=== PATIENT | male | born 1965 | race African-American/Black ===

== ENCOUNTER 2016-09-04 11:04 | Emergency (ER) | payer MEDICARE, OTHER ==
[~2016-09-04] VITALS: Ht 182.9 cm; Wt 78.0 kg
[2016-09-04 11:08] VITALS: Ht 182.9 cm; Wt 78.0 kg
--- NOTE | 2016-09-04 12:22 | ERD ---
ER Documentation Chief Complaint Date/Time DATE: 09/04/16 TIME: 12:14 Chief Complaint left eye redness HPI 51-year-old male presented emergency department for left eye redness for 2 days. Denies headache, loss of consciousness, eye trauma, head trauma, dizziness, blurry vision, changes in vision, photophobia, facial pain, ear pain, throat pain, difficulty swallowing, neck pain, shoulder pain, chest pain, cough, hemoptysis, abdominal pain, back pain, loss of appetite, nausea, vomiting, hematochezia, diarrhea, constipation, urinary symptoms, bladder and bowel incontinences, extremity weakness, extremity tenderness, numbness or tingling sensation, difficulty walking, recent travel, recent exposure to illness, recent antibiotic use in the last 3 months, fever, chills. No known drug allergies. Past medical history of diabetes. Surgical history of right Achilles tendon repair. Medication: Stated that he uses insulin for his diabetes. Social history: Not working at this time. Smokes 1 pack of cigarettes a day. Denies use of alcoholic beverages, use of illegal drugs. ROS All systems reviewed and are negative except as per history of present illness. Medications Home Meds Active Scripts Erythromycin* (Erythromycin* Ophthalmic) 1 Applic Oint, 1 APPLIC BOTH EYES QID for 7 Days, EA Prov:ANTONIO SILVERMAN 09/04/16 PMhx/Soc Medical and Surgical Hx: pt denies Medical Hx, pt denies Surgical Hx Hx Alcohol Use: Yes Hx Substance Use: Yes Hx Tobacco Use: Yes Smoking Status: Current every day smoker Physical Exam Vitals Physical Exam CONSTITUTIONAL: Well-appearing; well-nourished; in no apparent distress. HEAD: Normocephalic; atraumatic. EYES: Left eye: Conjunctival redness. Clear, sclera non-icteric, EOM intact. PERRLA. Right eye: Conjunctiva redness. Clear, sclera non-icteric, EOM intact. PERRLA. Ears: Hearing intact. EACs clear, TMs non-bulging, non-inflamed, translucent & mobile, ossicles normal appearance, No obstructions, no erythema, no discharges Nose: No obstructions. No polyps. No external lesions. Mucosa non-inflamed. No external lesions, septum and turbinates normal. No rhinorrhea. No discharges. Frontal sinus is non-tender to palpation. Maxillary sinus is non-tender to palpation. MOUTH: Moist mucous membranes, no lesion, no obstructions, no vesicles, no thrush, patent airway Throat: Uvula in midline. Right tonsil is +1 with no erythema, no exudate. Left tonsil is +1 with no erythema, no exudate. Tolerating secretions well. Good gag reflex. Patent airway. Neck: Supple, without lesions, bruits, or adenopathy. No mass. Thyroid non- enlarged and non-tender to palpation. CHEST: Symmetrical chest. Respirations even and not labored. No retractions noted. CARDIOVASCULAR: Normal S1, S2. RRR. No murmurs, gallops. RESPIRATORY: Normal chest excursion with respiration; breath sounds clear and equal bilaterally; no wheezes, rhonchi, or rales. Breathing even and unlabored. Speaking in clear, full, and complete sentences w/ ease. ABDOMEN: Normal bowel sounds normal. Soft, round, non-distended, non-guarding, no tenderness, no rebound, no organomegaly, no masses, no pulsating abdominal mass. No hernia. No peritoneal signs. : No CVA tenderness. BACK: Symmetrical shoulder. Spine is midline without deformity, tenderness. No evidence of trauma or deformity. PELVIS: Stable pelvis. No evidence of trauma or deformity. MUSCULOSKELETAL: Normal gait and station. No misalignment, asymmetry, crepitation, defects, tenderness, masses, effusions, decreased range of motion, instability, atrophy or abnormal strength or tone in the head, neck, spine, ribs , pelvis or extremities. No calf tenderness. NEUROVASCULAR: Distal pulses are present. Pedal pulse are present, equal, and normal. Capillary refills are < 2 seconds. NEUROLOGIC: Alert and oriented x4. Speaks full and clear sentences. Cranial Nerves II-XII normal. Sensation to pain, touch, and proprioception normal. Grossly unremarkable. No neurologic deficits. Romberg test is negative. PSYCHOLOGICAL: The patients mood and manner are appropriate. No hallucinations , delusions. Not SI. Not HI. Has the capacity to decide for self SKIN: Normal for age and ethnicity; warm; dry; good turgor; no apparent lesions or exudates. No rashes, hives, discoloration. Intact. Results 24 hrs Current Medications Medications (Trade) Dose Ordered Sig/Nely Route PRN Reason Start Time Stop Time Status Last Admin Dose Admin Fluorescein Sodium (Jvald-X-Yohsv) 1 strip ONCE ONCE LEFT EYE 09/04/16 12:30 09/04/16 12:31 DC Proparacaine HCl (Alcaine 0.5%) 1 drop ONCE ONCE LEFT EYE 09/04/16 12:30 09/04/16 12:31 DC Pantoprazole (Protonix Iv) 40 mg ONCE ONCE IV 09/04/16 13:00 09/04/16 13:01 Cancel Procedures/MDM Examination: Please see physical examination. Disease process, medical treatment was explained to the patient and family member. They verbalized understanding and agreed with the diagnostic tests, medical treatment, and follow-up care. Treatment: Proparacaine. Fluorescein. Bilateral eye exam: No signs of foreign bodies. No signs of globe rupture. Extraocular movement is good. No vesicular lesions. No herpetic lesions. No pain on eye movement. Re-evaluation: Denies headache, dizziness, blurry vision, ear pain, throat pain , neck pain, neck stiffness, shoulder pain, chest pain, abdominal pain, back pain, nausea. No episode of emesis in the emergency department. No pain on eye movement. Extraocular movement of the eyes is within normal limits. Good and full range of motion of neck and spine. No neurological deficits. No neurovascular deficits. Consultation: None. Differential diagnosis: Subconjunctival hemorrhage versus conjunctivitis Medical decision makin-year-old male presented emergency department for left eye redness for 2 days. Denies headache, loss of consciousness, eye trauma , head trauma, dizziness, blurry vision, changes in vision, photophobia, facial pain, ear pain, throat pain, difficulty swallowing, neck pain, shoulder pain, chest pain, cough, hemoptysis, abdominal pain, back pain, loss of appetite, nausea, vomiting, hematochezia, diarrhea, constipation, urinary symptoms, bladder and bowel incontinences, extremity weakness, extremity tenderness, numbness or tingling sensation, difficulty walking, recent travel, recent exposure to illness, recent antibiotic use in the last 3 months, fever, chills. Patient's complaint, my physical findings, diagnostic test results, my reevaluation are consistent my final diagnosis of conjunctivitis. Medications prescribed are the following: Erythromycin ophthalmic ointment. Patient and family member are made aware of the side effects and adverse reactions of the medications prescribed. Instructed on when to seek emergent and medical attention in case allergic/anaphylactic reactions or severe side effects and or adverse reactions to medications. Patient and family member verbalized understanding. Patient instructed Instructed to follow-up with his PCP in 24-48 hours. PCP to refer patient to retail banker if symptoms get worse. Instructed to Call 911 for chest pain, shortness of breath. Advised to come back here in ED as soon as possible for severity of symptoms which includes but not limited to: any new symptoms; shortness of breath/difficulty of breathing; cardiovascular changes; severe gastrointestinal symptoms; signs and symptoms of bleeding and or infection; signs of compartment syndrome/neurovascular changes; neurological changes/deficits. Patient and family member verbalized understanding. Upon discharge, patient is alert and oriented x 4, speaks full and clear sentences, denies pain, has no neurological deficits, has no neurovascular deficits, difficulty of breathing. Breathing even and unlabored. Lung sounds are clear to auscultation. Not in distress. Appears comfortable. Ambulatory with steady gait. Appears satisfied with care provided here in ED. Departure Diagnosis: Primary Impression: Conjunctivitis Condition: Stable Additional Instructions: atient instructed Instructed to follow-up with his PCP in 24-48 hours. PCP to refer patient to retail banker if symptoms get worse. Instructed to Call 911 for chest pain, shortness of breath. Advised to come back here in ED as soon as possible for severity of symptoms which includes but not limited to: any new symptoms; shortness of breath/difficulty of breathing; cardiovascular changes; severe gastrointestinal symptoms; signs and symptoms of bleeding and or infection; signs of compartment syndrome/neurovascular changes; neurological changes/deficits. Patient and family member verbalized understanding. ANTONIO SILVERMAN September 04, 2016 12:22 bleeding and or infection; signs of compartment syndrome/neurovascular changes; neurological changes/deficits. Patient and family member verbalized understanding. ANTONIO SILVERMAN September 04, 2016 12:22
[2016-09-04] MEDS ORDERED: FLUORESCEIN STRIP LEFT EYE ONE (12:30)
[2016-09-04] MEDS ORDERED: PROPARACAINE 0.5% 15 ML OPH LEFT EYE ONE (12:30)
[2016-09-04] MEDS ORDERED: ERYTOPOI BOTH EYES (12:59)
[2016-09-04] MEDS ORDERED: PANTOPRAZOLE 40 MG INJ IV ONE (13:00)
== END 2016-09-04 13:35 | disposition home or self-care (01) ==
LOC: FTE 11:04
DX: H10.9 Unspecified conjunctivitis (principal); F17.210 Nicotine dependence, cigarettes, uncomplicated; E11.9 Type 2 diabetes mellitus without complications; Z79.4 Long term (current) use of insulin
CPT/HCPCS: 99283

== ENCOUNTER 2017-05-07 21:12 | Emergency (ER) | END 2017-05-07 21:47 | disposition left against medical advice (07) ==